=== PATIENT | female | born 1955 | race Two or more races ===

== ENCOUNTER → 2016-06-28 | Outpatient (CLI) | payer BC ==
[~2016-06-28] VITALS: Ht 162.6 cm; Wt 68.0 kg
== END | disposition home or self-care (01) ==
LOC: Rad HDHVI 09:29
PROVIDERS: ATTEND Internal Medicine Cardiovascular Disease
DX: Z13.89 Encounter for screening for other disorder (principal); I10 Essential (primary) hypertension; Z82.49 Family history of ischemic heart disease and other diseases of the circulatory system
CPT/HCPCS: 78452; 93017; 96374; A9500

== ENCOUNTER → 2017-02-06 | Outpatient (CLI) | payer BC ==
[2017-02-06 12:18] LABS: Urine Bilirubin Negative (Negative); Urine Blood Negative /uL (Negative); Urine Color Yellow (Yellow); Urine Glucose Normal (Normal); Urine Ketone Negative (Negative); Urine Nitrite Negative (Negative); Urine Urobilinogen Normal (Negative)
[2017-02-06 12:20] LABS: Basophils # (auto) 0 uL; Basophils % (auto) 0.3 % (0.0-2.0); Eosinophils # (auto) 0 uL; Eosinophils % (auto) 0.9 % (0.0-7.0); Hemoglobin 12.6 g/dL (12.2-16.2); Lymphocytes # (auto) 2.4 uL; Lymphocytes % (auto) 48.6 % (10.0-50.0); Mean Corpuscular Hemoglobin 29.3 pg (28.0-32.0); Mean Corpuscular Hgb Conc. 32.2 g/dL (32.0-36.0); Mean Corpuscular Volume 90.8 fL (80.0-100.0); Mean Platelet Volume 7.9 fL (6.9-10.8); Monocytes # (auto) 0.2 uL; Monocytes % (auto) 4.2 % (0.0-12.0); Neutrophils # (auto) 2.3 uL; Nucleated Red Blood Cells % 0.1 %; Platelet Count (auto) 263 10^3/uL (140-450); Red Cell Distribution Width 14.2 % (11.8-14.3); White Blood Cell 4.9 10^3/uL (4.4-10.8)
[2017-02-06 12:30] LABS: Albumin 3.7 g/dL (3.4-5.0); Bilirubin, Direct 0.1 mg/dL (0-0.2); Bilirubin, Total 0.2 mg/dL (0.2-1.0); Calcium 9.9 mg/dL (8.5-10.1)
== END | disposition home or self-care (01) ==
LOC: LAB 09:06
PROVIDERS: ATTEND Internal Medicine Cardiovascular Disease
DX: I10 Essential (primary) hypertension (principal); E78.00 Pure hypercholesterolemia, unspecified; K74.1 Hepatic sclerosis; E11.9 Type 2 diabetes mellitus without complications; E03.9 Hypothyroidism, unspecified; D64.9 Anemia, unspecified; E55.9 Vitamin D deficiency, unspecified; N39.0 Urinary tract infection, site not specified
CPT/HCPCS: 36415; 80048; 80061; 80076; 81003; 82306; 83036; 84439; 84443; 85025; 87086

== ENCOUNTER → 2019-10-29 | Outpatient (CLI) | payer OTHER | END | disposition home or self-care (01) | LOC: Rad HDHVI 09:01 | PROVIDERS: ATTEND Internal Medicine Cardiovascular Disease | DX: K80.20 Calculus of gallbladder without cholecystitis without obstruction (principal); J98.11 Atelectasis; N20.0 Calculus of kidney; K82.8 Other specified diseases of gallbladder; Z90.710 Acquired absence of both cervix and uterus | CPT/HCPCS: 74176 ==

== ENCOUNTER 2020-04-17 10:30 | Inpatient (IN) | payer OTHER ==
[~2020-04-17] VITALS: Ht 162.6 cm; Wt 65.9 kg
[2020-04-17] MEDS ORDERED: PANTOPRAZOLE 40 MG/10 ML VIAL INJ IV STA (10:43)
[2020-04-17] MEDS ORDERED: HYDROmorphone HCL 2 MG/ML VL IV ONE (10:45)
[2020-04-17] MEDS ORDERED: MORPHINE SULFATE 4 MG/ML SYR/VIAL IV ONE (10:45)
[2020-04-17 11:47] LABS: Basophils # (auto) 0 10 ^3/uL (0-0.2); Basophils % (auto) 0.1 % (0.0-2.0); Eosinophils # (auto) 0 10 ^3/uL (0-0.8); Hematocrit 39.9 % (36.0-46.0); Hemoglobin 13.1 g/dL (12.2-16.2); Lymphocytes # (auto) 0.6 10 ^3/uL (0.4-5.4); Lymphocytes % (auto) 11.8 % (10.0-50.0); Mean Corpuscular Hemoglobin 30.1 pg (28.0-32.0); Mean Corpuscular Hgb Conc. 32.9 g/dL (32.0-36.0); Mean Corpuscular Volume 91.3 fL (80.0-100.0); Monocytes # (auto) 0.2 10 ^3/uL (0-1.3); Monocytes % (auto) 4.4 % (0.0-12.0); Neutrophils # (auto) 3.9 10 ^3/uL (1.6-8.6); Neutrophils % (auto) 83.7 % (37.0-80.0); Platelet Count (auto) 192 10^3/uL (140-450); Red Blood Cells 4.37 10^6/uL (4.0-5.20); Red Cell Distribution Width 13.8 % (11.8-14.3); White Blood Cell 4.7 10^3/uL (4.4-10.8)
[2020-04-17 12:00] LABS: Urine Bacteria MANY /hpf (None Seen); Urine Blood Negative /uL (Negative); Urine Mucus FEW (None Seen); Urine Specific Gravity 1.023 (1.001-1.035); Urine WBC 18 /hpf (0 - 5)
[2020-04-17] MEDS ORDERED: cefTRIAXone 1GM/50ML D5W 50 ML IV ONE (12:30)
[2020-04-17] MEDS ORDERED: MORPHINE SULF INJ 2 MG/ML SYRINGE 1ML IV PRN (13:30)
[2020-04-17] MEDS ORDERED: NITROGLYCERIN 0.4 MG SL TAB SL PRN (13:30)
[2020-04-17 13:44] LABS: BUN/Creatinine Ratio 13.3; Potassium 3.7 mmol/L (3.5-5.1)
[2020-04-17 13:45] LABS: Albumin 3.6 g/dL (3.4-5.0); Bilirubin, Total 0.2 mg/dL (0.2-1.0); Calcium 8.1 mg/dL (8.5-10.1); Total Protein 6.9 g/dL (6.4-8.2)
[2020-04-17] MEDS ORDERED: PIPERACILLIN-TAZO 4.5GM 100 ML IV SCH (14:00)
[2020-04-17] MEDS: levoFLOXacin 500MG 100 ML IV SCH (14:44)
[2020-04-17] MEDS ORDERED: VANCOMYCIN PER PHARMACY 1,000 MG IV SCH (15:00)
[2020-04-17] MEDS ORDERED: ESTR0.1C5 VA (16:15)
[2020-04-17] MEDS ORDERED: HYDR12.56 PO (16:15)
[2020-04-17] MEDS ORDERED: LISI-646 PO (16:15)
--- NOTE | 2020-04-17 17:30 | NUR ---
IV insertion IV access obtained, via clean sterile technique by inserting 22 gauge catheter at LAC after 1 attempt. IV secured properly. No trauma to site. Patient tolerated well.
--- NOTE | 2020-04-17 17:30 | NUR ---
MS admit from ER [facility] admitted to tele/MS . Patient oriented to RADHIKA FLEMINGRN primary RN, unit, room, bed, and unit policies regarding patient care and visiting hours. Bed in lowest/locked position, bed rails up x2, call light within reach. Patient weighed by bedscale and encouraged to call if they need something. All questions and concerns addressed, patient verbalized understanding.
[2020-04-17] MEDS: HYDROmorphone HCL 2 MG/ML VL IV PRN ×2 (18:03→21:48)
[2020-04-17] MEDS ORDERED: POTA99TA3 PO (18:33)
[2020-04-17] MEDS ORDERED: MELA5TAB8 PO (18:33)
[2020-04-17] MEDS ORDERED: ASCO500T11 PO (18:33)
[2020-04-17] MEDS ORDERED: MULT-1018 PO (18:33)
[2020-04-17] MEDS ORDERED: [UNRECOGNIZED DRUG - CODE] PO (18:33)
[2020-04-17] MEDS ORDERED: PROBTAB12 PO (18:33)
[2020-04-17] MEDS: SODIUM CHLORIDE 0.9% 1,000 ML IV SCH ×2 (18:38→23:30)
[2020-04-17] MEDS: VANCOMYCIN 1GM/250ML 250 ML IV SCH (18:38)
--- NOTE | 2020-04-17 19:20 | NUR ---
Opening shift note Assumed care of patient from day shift RNLayla. Patient A&Ox4, respirations even and non-labored with no s/s of distress at this time. Discussed POC with patient and to call for assistance, the patient verbalized understanding. Safety precautions in place, bed in lowest locked position with 2 side rails up, call light within reach. Will continue to monitor Q1hr and PRN.
[2020-04-17] MEDS: METOCLOPRAMIDE HCL 5MG/ml INJ 2ml VIAL IV PRN (21:48)
[2020-04-17 22:15] VITALS: BP 143/61
[2020-04-18] MEDS: HYDROmorphone HCL 2 MG/ML VL IV PRN ×6 (01:52→23:05)
[2020-04-18] MEDS: VANCOMYCIN 1GM/250ML 250 ML IV SCH ×2 (02:57→15:07)
--- NOTE | 2020-04-18 04:40 | NUR ---
Patient fever 100.2 Cooling measures taken: Ice packs, blanket removal, and room temperature decreased. Patient tolerated well, currently asymptomatic. Will continue to monitor.
[2020-04-18 04:54] VITALS: BP 122/60
[2020-04-18] MEDS: SODIUM CHLORIDE 0.9% 1,000 ML IV SCH ×2 (06:01→19:02)
--- NOTE | 2020-04-18 07:05 | NUR ---
Temperature reassessed T 100, patient holding ice packs under arms at this time. Currently asymptomatic and without c/o of chills at this time.
[2020-04-18 08:00] VITALS: BP 126/49
--- NOTE | 2020-04-18 08:46 | NUR ---
Pain Patient is c/o lower back pain, will medicate per MD orders. no s/s of distress/sob noted/stated.
[2020-04-18 09:00] VITALS: BP 126/49
[2020-04-18] MEDS: PANTOPRAZOLE 40 MG/10 ML VIAL INJ IV SCH (10:07)
[2020-04-18] MEDS: levoFLOXacin 500MG 100 ML IV SCH (10:08)
[2020-04-18] MEDS: METOCLOPRAMIDE HCL 5MG/ml INJ 2ml VIAL IV PRN ×2 (12:40→23:05)
[2020-04-18 13:00] VITALS: BP 122/64
[2020-04-18 16:28] VITALS: BP 124/59
--- NOTE | 2020-04-18 19:04 | NUR ---
PAIN PAIN medication given for abdominal pain of 8/10. Will endorse re-assessment to NOC RN. Bed at lowest locked position and call light within reach.
--- NOTE | 2020-04-18 19:25 | NUR ---
Opening shift note Assumed care from day shift RNSherin. Patient A&Ox4, respirations even and non-labored without s/s of distress at this time. Discussed POC and upcoming procedure, and to call for assistance, patient verbalized understanding. Safety precautions in place with bed in lowest locked position, 2 side rails up, call light within reach. Will continue to monitor Q1hr and PRN.
--- NOTE | 2020-04-18 19:31 | NUR ---
care endorsed to NOC RN.
[2020-04-18 20:01] LABS: INR 1.04 (0.9-1.15); Partial Thromboplastin Time 28.2 sec (23.0-31.2)
[2020-04-18 22:00] VITALS: BP 130/64
[2020-04-19] MEDS: VANCOMYCIN 1GM/250ML 250 ML IV SCH (03:13)
[2020-04-19] MEDS: HYDROmorphone HCL 2 MG/ML VL IV PRN ×3 (03:14→11:48)
[2020-04-19] MEDS: SODIUM CHLORIDE 0.9% 1,000 ML IV SCH (03:50)
--- NOTE | 2020-04-19 04:44 | NUR ---
Temperature 100.8 Cooling measures taken: Ice packs, blanket removal. Patient tolerating well, will continue to monitor.
[2020-04-19 05:00] VITALS: BP 133/66
--- NOTE | 2020-04-19 05:48 | NUR ---
Temperature reassessed T 99.4. Patient resting without s/s of distress or discomfort at this time. Will continue to monitor.
--- NOTE | 2020-04-19 07:22 | NUR ---
Closing shift note Patient resting, respirations even and non-labored with no s/s of distress at this time. Endorsed care to day shift RN, August.
--- NOTE | 2020-04-19 07:35 | NUR ---
Opening Shift Note Assumed care of patient. She is awake and alert and oriented. Respirations are even and non labored on room air. No S/S of distress/SOB or pain but patient reports nausea. Bed is in the lowest and locked position with side rails up x 2 and call light within reach. Instructed on POC and to call for assist PRN, will continue to monitor for changes Q1hr and PRN.
[2020-04-19 09:08] VITALS: BP 141/56
[2020-04-19] MEDS: METOCLOPRAMIDE HCL 5MG/ml INJ 2ml VIAL IV PRN (09:10)
[2020-04-19] MEDS: levoFLOXacin 500MG 100 ML IV SCH (09:11)
--- NOTE | 2020-04-19 09:26 | NUR ---
Call from lab Received message from JARROD Fine that a call from [facility] to report that patient is covid positive. Charge nurse informed.
[2020-04-19] MEDS: PANTOPRAZOLE 40 MG/10 ML VIAL INJ IV SCH (10:00)
--- NOTE | 2020-04-19 10:04 | NUR ---
Care endorsed to Selene GARAY for room 19A report given to transfer to [facility]. Patient taken to room 19A via wheelchair, no signs of distress noted at the time of transfer.
--- NOTE | 2020-04-19 12:05 | NUR ---
Nutrition Assessment Notes Please see attached link for complete assessment Est Energy needs BW 66 [id number] kcals (25-30kcal/kgBW), Est Protein needs: 66-79 gms/day (1.0-1.2 gm/kgBW). Will continue to monitor and reassess prn.. Addendum: 04/19/20 at [address] Amended: Links added.
[2020-04-19] MEDS ORDERED: ONDANSETRON HCL 4 MG/2 ML VIAL IV PRN (12:45)
[2020-04-19 13:00] VITALS: BP 136/67
--- NOTE | 2020-04-19 15:11 | NUR ---
Spoke with pharmacist dont give vancomycin, patient vanco trough never pulled per pharmacy will rescheduled once trough is in.
--- NOTE | 2020-04-19 16:55 | NUR ---
Discharge instructions given as ordered. Encourage to follow up with PMD as instructed. All questions and concerns addressed. Patient verbalized understanding. Medication reconciliation form completed and copy given to patient. IV removed with catheter intact, pressure dressing applied. Patient taken to vehicle via wheelchair with all personal belongings, accompanied by staff and family member waiting in front lobby . No distress noted at time of departure.
[2020-04-19] MEDS ORDERED: metroNIDAZOLE 500MG/100ML 100 ML IV SCH (22:00)
== END 2020-04-19 16:55 | disposition home or self-care (01) | DRG 444 ==
LOC: ER 10:30 → OVERFLOW 10:31 → WEST WING 17:21 → CENTRAL 04-19 10:27
PROVIDERS: ADMIT Internal Medicine Cardiovascular Disease; ATTEND Internal Medicine Cardiovascular Disease
DX: K80.00 Calculus of gallbladder with acute cholecystitis without obstruction (principal); U07.1 COVID-19; I10 Essential (primary) hypertension; Z90.710 Acquired absence of both cervix and uterus; Z88.0 Allergy status to penicillin
CPT/HCPCS: 36415; 71045; 76705; 80053; 81001; 83690; 84484; 85025; 85610; 85730; 86850; 86900; 86901; 87086; 87088; 87186; 87426; 93005; C9113; G0378; J1956

== ENCOUNTER → 2021-02-14 | Outpatient (CLI) | payer OTHER ==
[~2021-02-14] MED LIST: ASCO500T11 PO; ESTR0.1C5 VA; HYDR12.56 PO; LISI20TA28 PO; MELA5TAB8 PO; MULT-1018 PO; POTA99TA3 PO; PROBTAB12 PO; [UNRECOGNIZED DRUG - CODE] PO
[2021-02-14 15:20] LABS: Basophils # (auto) 0 10 ^3/uL (0-0.2); Basophils % (auto) 0.5 % (0.0-2.0); Eosinophils # (auto) 0.1 10 ^3/uL (0-0.8); Eosinophils % (auto) 1.1 % (0.0-7.0); Hematocrit 39.7 % (36.0-46.0); Hemoglobin 12.9 g/dL (12.2-16.2); Lymphocytes # (auto) 1.9 10 ^3/uL (0.4-5.4); Lymphocytes % (auto) 36.9 % (10.0-50.0); Mean Corpuscular Hemoglobin 29.8 pg (28.0-32.0); Mean Corpuscular Hgb Conc. 32.6 g/dL (32.0-36.0); Mean Corpuscular Volume 91.6 fL (80.0-100.0); Monocytes # (auto) 0.3 10 ^3/uL (0-1.3); Monocytes % (auto) 5.8 % (0.0-12.0); Neutrophils # (auto) 2.8 10 ^3/uL (1.6-8.6); Neutrophils % (auto) 55.7 % (37.0-80.0); Nucleated Red Blood Cells % 0.1 %; Red Blood Cells 4.34 10^6/uL (4.0-5.20); Red Cell Distribution Width 13.7 % (11.8-14.3)
[2021-02-14 15:22] LABS: Urine Blood Negative /uL (Negative); Urine Specific Gravity 1.014 (1.001-1.035)
[2021-02-14 15:39] LABS: Chloride 106 mmol/L (98-107); Sodium 141 mmol/L (136-145)
[2021-02-14 15:53] LABS: Alanine Aminotransferase 30 U/L (13-56); Albumin 3.6 g/dL (3.4-5.0); Alkaline Phosphatase 81 U/L (45-117); Anion Gap 6 (5-15); Aspartate Aminotransferase 18 U/L (15-37); BUN/Creatinine Ratio 17.9; Bilirubin, Direct < 0.1 mg/dL (0-0.2); Bilirubin, Total 0.3 mg/dL (0.2-1.0); Blood Urea Nitrogen 14 mg/dL (7-18); Calcium 9.8 mg/dL (8.5-10.1); Carbon Dioxide 29 mmol/L (21-32); Cholesterol 182 mg/dL (< 200); GFR African American 96 mL/min; GFR Non-African American 79 mL/min; Glucose 84 mg/dL (74-106); HDL Cholesterol 66 mg/dL (40-59); LDL Cholesterol 103 mg/dL (< 100); Total Protein 6.9 g/dL (6.4-8.2); Triglycerides 138 mg/dL (< 150)
== END | disposition home or self-care (01) ==
LOC: CHF HDHVI 11:15
PROVIDERS: ATTEND Internal Medicine Cardiovascular Disease
DX: D51.3 Other dietary vitamin B12 deficiency anemia (principal); I10 Essential (primary) hypertension; E11.9 Type 2 diabetes mellitus without complications; E55.9 Vitamin D deficiency, unspecified; D64.9 Anemia, unspecified; R00.2 Palpitations; R53.1 Weakness; R30.0 Dysuria
CPT/HCPCS: 36415; 80048; 80061; 80076; 81003; 82306; 83036; 84443; 85025; 87086

== ENCOUNTER → 2021-07-06 | Outpatient (CLI) | payer MEDICARE ==
[2021-07-06 15:26] LABS: Urine Blood Negative /uL (Negative); Urine Specific Gravity 1.018 (1.001-1.035)
== END | disposition home or self-care (01) ==
LOC: LAB 11:46
PROVIDERS: ATTEND Internal Medicine Cardiovascular Disease
DX: N39.0 Urinary tract infection, site not specified (principal)
CPT/HCPCS: 81003

== ENCOUNTER → 2021-11-15 | Outpatient (CLI) | payer MEDICARE | END | disposition home or self-care (01) | LOC: Rad HDHVI 09:06 | PROVIDERS: ATTEND Internal Medicine Cardiovascular Disease | DX: I35.0 Nonrheumatic aortic (valve) stenosis (principal); R06.02 Shortness of breath; I10 Essential (primary) hypertension | CPT/HCPCS: 93306 ==

== ENCOUNTER → 2021-11-28 | Outpatient (CLI) | payer MEDICARE | END | disposition home or self-care (01) | LOC: Rad HDHVI 09:03 | PROVIDERS: ATTEND Internal Medicine Cardiovascular Disease | DX: I65.23 Occlusion and stenosis of bilateral carotid arteries (principal); I65.09 Occlusion and stenosis of unspecified vertebral artery; R07.89 Other chest pain; I10 Essential (primary) hypertension | CPT/HCPCS: 93880 ==